=== PATIENT | female | born 1980 | race Caucasian/White ===

== ENCOUNTER 2023-10-06 05:20 | Emergency (ER) | payer OTHER ==
[~2023-10-06] VITALS: Ht 175.3 cm; Wt 125.2 kg
[~2023-10-06 05:20] MED LIST: ATRN INH; FERR325E14 PO; GABA100C PO; HYDR-5191 PO; MOME13HF7 INH; NAPR-54 PO; SPIR25TA20 PO; TOP25 PO
[2023-10-06 05:31] VITALS: BP 163/108; PULSE 124; RESP 20; TEMP 98; O2SAT 98
[2023-10-06] MEDS ORDERED: INSULIN REGULAR, HUMAN 100 UNIT/ML VIAL SUBQ ONE (05:55)
== END 2023-10-06 06:10 ==
LOC: MED 05:20
DX: Z02.89 Encounter for other administrative examinations (principal); I10 Essential (primary) hypertension; J45.909 Unspecified asthma, uncomplicated; Z79.899 Other long term (current) drug therapy; Z79.1 Long term (current) use of non-steroidal anti-inflammatories (NSAID); Z88.0 Allergy status to penicillin; Z88.1 Allergy status to other antibiotic agents
CPT/HCPCS: 96372; 99283; J1815